=== PATIENT | male | born 1995 | race Caucasian/White ===

== ENCOUNTER 2020-09-03 00:15 | Emergency (ER) | payer SELFPAY ==
[2020-09-03 00:15] VITALS: BP 131/84; PULSE 73; RESP 20; TEMP 36.8; O2SAT 98
--- NOTE | 2020-09-03 00:42 | ED.PSYCH ---
HPI - Psych General Chief Complaint: Psychiatric Symptoms Stated Complaint: Dakota galeano Time Seen by Provider: 09/03/20 00:42 Source: patient Mode of arrival: EMS Limitations: no limitations History of Present Illness HPI Narrative: 25-year-old man brought to the emergency department by EMS after his friend called for a wellness check on him. He stated to his friend that everyone might be better off without him. He had cut his left wrist multiple times. He states that he had a few tall boys today and smoked some marijuana. Patient states that he became upset after he calmed home to find that his girlfriend had left with his children. he denies prior suicidal ideation or suicide attempts and he has had no prior psych hospitalizations. complaint: suicidal ideation Onset (ago): hour(s) (6) Duration: constant History of same: No Relieving factors: none Exacerbating factors: none Context: recent alcohol abuse, recent drug abuse and significant life stressor Associated psychiatric symptoms: depression Associated symptoms: denies other symptoms Treatments prior to arrival: none If self harm: admits thoughts of self harm, has acted on plan and self-inflicted trauma Related Data Home Medications Medication Instructions Recorded Confirmed No Home Medications 09/03/20 09/03/20 Review of Systems Constitutional: Constitutional: Denies chills and Denies fever(s) ENT: Denies dysphagia, Denies nasal congestion and Denies sore throat Cardiovascular: Cardiovascular: Denies chest pain and Denies radiating jaw, neck or arm pain Respiratory: Respiratory: Denies cough and Denies dyspnea Gastrointestinal: Gastrointestinal: Denies abdominal pain, Denies diarrhea and Denies vomiting Genitourinary: Genitourinary: Denies hematuria, Denies dysuria and Denies urinary frequency Integumentary/Breasts: Skin/Breast: Denies pruritus, Denies erythema and Denies rash Neurologic: Denies vertigo, Denies dizziness and Denies syncope Hematologic/Lymphatic: Hematologic/Lymphatic: Denies easy bleeding and Denies easy bruising Allergic/Immunologic: Allergic/Immunologic: Denies lip swelling and Denies tongue swelling PMFSH Social History Social History Smoking status: Current every day smoker Alcohol intake: current Substance use: current Substance use type: marijuana Living arrangements: with family Exam Const: General: healthy appearing, no acute distress and alert Orientation/consciousness: patient oriented x3 Limitations: no limitations HENMT: Head: normal to inspection Ears: external ears normal, TM's normal bilaterally and EAC's normal General nose exam: Normal nares present Face and sinus: normal facial exam Throat: posterior oropharynx normal and uvula midline Eyes: Conjunctivae: conjunctivae normal Pupils: Equal, round and reactive pupils present EOM: EOMs intact bilaterally Resp: Effort & Inspection: normal respiratory effort and not labored Auscultation: clear to auscultation bilaterally, no rales, no rhonchi and no wheezes Cardio: Rate: regular rate Rhythm: regular rhythm Heart sounds: no murmurs GI: GI Palp: Yes Soft to palpation and No Tenderness to palpation present (GI) Skin: General skin exam: no jaundice and no pallor Rashes: no rashes Other: Multiple superficial transverse lacerations on the volar and radial aspect of the left wrist. Neuro: General: patient oriented x3, moves all extremities, no focal motor deficits and CN's II-XI intact bilaterally Speech: normal speech Extrem: General: normal to inspection and no clubbing, cyanosis or edema Psych: Appearance: grossly normal and well kempt Mental Status: mental status grossly normal Affect: normal affect Attitude: cooperative Thought content: Yes Normal thought content present Course Vital Signs Vital signs: Vital Signs Temperature 36.8 C 09/03/20 00:15 Pulse Rate 73 09/03/20 0
[2020-09-03 00:53] LABS: Basophils Absolute Auto 0.05 K/mm3 (0.00-0.10); Basophils Percent Auto 0.4 % (0.0-1.0); Eosinophils Absolute Auto 0.09 K/mm3 (0.02-0.50); Eosinophils Percent Auto 0.8 % (1.0-6.0); Hematocrit 44.3 % (40.0-54.0); Hemoglobin 14.9 g/dL (14.0-18.0); Immature Granulocyte Absolute 0.03 K/mm3 (0.00-0.00); Immature Granulocyte Percent A 0.3 % (0.0-0.0); Lymphocytes Percent Auto 23.6 % (18.0-42.0); Mean Corpuscular HGB Conc 33.6 g/dL (32.0-36.0); Mean Corpuscular Hemoglobin 29.8 pg (27.0-31.0); Mean Corpuscular Volume 88.6 fL (78.0-102.0); Mean Platelet Volume 9.4 fl (8.7-11.0); Monocytes Absolute Auto 0.69 K/mm3 (0.10-0.90); Neutrophils Absolute Auto 7.9 K/mm3 (1.7-7.2); Neutrophils Percent Auto 68.9 % (50.0-70.0); Platelet Count Result 262 K/mm3 (150-420); Red Cell Distribution Width 12.8 % (11.6-14.4); White Blood Count 11.4 K/mm3 (4.8-10.8)
[2020-09-03 00:54] LABS: Add Urine Microscopic? NO; Appearance Urine Clear (Clear); Bilirubin Urine Negative (Negative); Blood Urine Negative (Negative); Color Urine Yellow (Yellow); Glucose Urine UA Negative (Negative); Ketones Urine Negative (Negative); Leukocyte Esterase Ur Negative LEU/UL (Negative); Nitrate Urine Negative (Negative); Protein Urine Negative (Negative); Specific Grav Ur <= 1.005 (1.010-1.020); Urobilinogen Urine 0.2 mg/dL (0.2-1.0); pH Urine 5.5 (5.0-8.0)
--- NOTE | 2020-09-03 01:00 | PC.NURSE ---
0100- Patient is sleeping at this time, sitter at bedside.
[2020-09-03 01:01] LABS: Amphetamine Screen Urine Negative (Negative); Barbiturate Screen Urine Negative (Negative); Benzodiazepines Screen Urine Negative (Negative); Cannabinoid Screen Urine Positive (Negative); Cocaine Screen Urine Negative (Negative); Methadone Screen Urine Negative (Negative); Opiate Screen Urine Negative (Negative); Phencyclidine Screen Urine Negative (Negative)
[2020-09-03 01:14] LABS: Alanine Aminotransferase 23 U/L (16-63); Albumin Level 3.8 g/dL (3.4-5.0); Alkaline Phosphatase 62 U/L (46-116); Anion Gap 12 mmol/L (8-16); Aspartate Amino Transferase 11 U/L (15-37); Bilirubin,Total 0.3 mg/dL (0.00-1.00); Blood Urea Nitrogen 10 mg/dL (7-18); Calcium 8.5 mg/dL (8.5-10.1); Carbon Dioxide 25 mmol/L (21-32); Chloride 108 mmol/L (98-108); Estimated Glomerular Filt Rate > 60; Ethanol 139 mg/dL (0-6); Glucose 92 mg/dL (70-99); Osmolality Calculated 299 mOsm/kg (285-295); Potassium 3.6 mmol/L (3.5-5.1); Salicylate 2.6 mg/dL (2.8-20.0); Sodium 145 mmol/L (136-145); Thyroid Stimulating Hormone 2.36 uIU/mL (0.36-3.74); Total Protein 7.2 g/dL (6.4-8.2)
[2020-09-03 01:23] LABS: Acetaminophen 0 ug/mL (10-30)
--- NOTE | 2020-09-03 01:27 | PC.NURSE ---
0127- Patient resting at this time, in direct view of sitter.
--- NOTE | 2020-09-03 02:01 | PC.NURSE ---
0201- Patient sleeping at this time, patient is in view of sitter.
--- NOTE | 2020-09-03 02:38 | PC.NURSE ---
0238-Patient sleeping, patient is in direct view of sitter.
--- NOTE | 2020-09-03 03:07 | PC.NURSE ---
0307- Patient sleeping at this time, patient is in direct view of sitter.
--- NOTE | 2020-09-03 03:32 | PC.NURSE ---
0332-Patient sleeping at this time, patient is in direct view of sitter.
--- NOTE | 2020-09-03 04:01 | PC.NURSE ---
0401-Patient sleeping at this time, patient is in direct view of sitter.
--- NOTE | 2020-09-03 04:34 | PC.NURSE ---
0433- Patient is sleeping at this time, patient is in direct view of sitter.
--- NOTE | 2020-09-03 05:13 | PC.NURSE ---
0513- Patient is sleeping at this time, patient is in direct view of sitter.
--- NOTE | 2020-09-03 05:38 | PC.NURSE ---
0538-Patient sleeping at this time, patient is in the direct view of sitter.
[2020-09-03 06:05] VITALS: BP 118/61; PULSE 64; RESP 16; O2SAT 98
--- NOTE | 2020-09-03 06:06 | PC.NURSE ---
0606-Lab present to draw repeat lab, vitals taken at this time, patient given a glass of water per his request.
[2020-09-03 06:13] LABS: Ethanol 57 mg/dL (0-6)
--- NOTE | 2020-09-03 06:40 | PC.NURSE ---
06- Patient is sleeping at this time, patient is in direct view of sitter.
--- NOTE | 2020-09-03 07:09 | PC.NURSE ---
pt sleeping, no distress noted. awaiting counselor arrival.
--- NOTE | 2020-09-03 07:31 | PC.NURSE ---
pt aware counselor trish. offered breakfast tray. pt declined a this time. i just want to sleep .
--- NOTE | 2020-09-03 07:54 | PC.NURSE ---
harriett in with pt for crisis assessment.
[2020-09-03 08:41] VITALS: BP 131/69; PULSE 69; RESP 20; TEMP 36.9; O2SAT 98
== END 2020-09-03 08:48 | disposition home or self-care (01) ==
PROVIDERS: Emergency Medicine; Emergency Provider Emergency Medicine; PCP Family Medicine
DX: S61.512A Laceration without foreign body of left wrist, initial encounter (principal); R45.851 Suicidal ideations
CPT/HCPCS: 36415; 80053; 80307; 81003; 84443; 85025; 99284